=== PATIENT | female | born 2000 | race African-American/Black ===

== ENCOUNTER 2022-01-23 11:33 | Emergency (ER) | payer OTHER ==
[2022-01-23 11:43] VITALS: TEMP 98.4; BMI 33.3
[2022-01-23 14:48] VITALS: BP 114/59; PULSE 76; RESP 18
== END 2022-01-23 14:47 | disposition home or self-care (01) ==
LOC: JERFT 11:33
DX: R07.89 Other chest pain (principal); M67.40 Ganglion, unspecified site
CPT/HCPCS: 36415; 73110-TC-RT-FY; 84484; 93005; 93010; 99284-25

== ENCOUNTER 2023-04-02 13:47 | Emergency (ER) | payer OTHER ==
[2023-04-02 14:13] VITALS: BP 107/76; PULSE 97; RESP 18; TEMP 98.2; BMI 37.1
[2023-04-02 17:03] LABS: SYPHILIS W/ RPR CONF NON-REACTIVE (NONREACTIVE)
[2023-04-02 17:31] LABS: HIV INTERPRETATION NEGATIVE (NEGATIVE)
== END 2023-04-02 16:56 | disposition home or self-care (01) ==
LOC: JERFT 13:47 → JER 13:47
DX: R05.9 Cough, unspecified (principal); Z11.3 Encounter for screening for infections with a predominantly sexual mode of transmission
CPT/HCPCS: 0241U-QW; 36415; 84703; 86704; 86780; 87340; 87389; 87491; 87517; 87591; 87661; 99283-25